=== PATIENT | male | born 1990 | race Caucasian/White ===

== ENCOUNTER 2023-02-07 16:34 | Emergency (ER) | payer OTHER ==
[2023-02-07] MEDS ORDERED: DIPHTH,PERTUSS(ACELL),TET 0.5 ML DISP.SYRIN IM ONE ×2 (16:38→16:48)
[2023-02-07 16:48] VITALS: BP 126/81; PULSE 89; RESP 18; TEMP 98.6; BMI 22.3
== END 2023-02-07 17:40 | disposition home or self-care (01) ==
LOC: FER 16:34
PROC: 0HQGXZZ Repair Left Hand Skin, External Approach (ICD-10-PCS; principal; 2023-02-07)
PROC: 3E0234Z Introduction of Serum, Toxoid and Vaccine into Muscle, Percutaneous Approach (ICD-10-PCS; 2023-02-07)
DX: S61.412A Laceration without foreign body of left hand, initial encounter (principal); W23.1XXA Caught, crushed, jammed, or pinched between stationary objects, initial encounter; Y93.89 Activity, other specified
CPT/HCPCS: 12001-25; 90471; 90715; 99282-25

== ENCOUNTER 2023-02-18 10:50 | Emergency (ER) | payer OTHER ==
[2023-02-18 10:56] VITALS: BP 100/60; PULSE 60; RESP 16; TEMP 97.9; BMI 22.3
== END 2023-02-18 11:21 | disposition home or self-care (01) ==
LOC: FER 10:50
DX: Z48.02 Encounter for removal of sutures (principal)
CPT/HCPCS: 99281-25

== ENCOUNTER 2023-02-25 14:05 | Emergency (ER) | payer OTHER ==
[2023-02-25 14:13] VITALS: BP 117/79; PULSE 93; RESP 16; TEMP 98.3; BMI 25.7
== END 2023-02-25 14:16 | disposition home or self-care (01) ==
LOC: FER 14:05
DX: S61.213D Laceration without foreign body of left middle finger without damage to nail, subsequent encounter (principal); X58.XXXD Exposure to other specified factors, subsequent encounter; Z48.02 Encounter for removal of sutures
CPT/HCPCS: 99282-25

== ENCOUNTER 2024-11-21 12:59 | Emergency (ER) | payer OTHER ==
[2024-11-21 13:36] VITALS: BP 106/55; PULSE 65; RESP 15; TEMP 98; BMI 22.3
== END 2024-11-21 15:15 | disposition home or self-care (01) ==
LOC: FER 12:59
DX: M70.42 Prepatellar bursitis, left knee (principal)
CPT/HCPCS: 89060; 99283-25